=== PATIENT | female | born 1980 ===

== ENCOUNTER → 2018-09-13 22:43 | Outpatient (REF) | payer OTHER, SELFPAY ==
[2018-09-13 23:47] LABS: Add Manual Diff / Slide Review NO; Basophils Percent Auto 0.7 % (0-2); Eosinophils Percent Auto 1.5 % (2-4); Hematocrit 40.2 % (36-46); Hemoglobin 13.6 g/dL (12.0-16.0); Lymphocytes Percent Auto 23.1 % (25-40); Mean Corpuscular HGB Conc 33.8 % (30-36); Mean Corpuscular Hemoglobin 29.6 PG (26-34); Mean Corpuscular Volume 87.8 fL (80-100); Monocytes Percent Auto 8.4 % (3-14); Neutrophils Absolute Auto 5000 /uL (1500-7000); Neutrophils Percent Auto 66.3 % (50-75); Platelet Count 132 X10^3/uL (150-400); Red Blood Cell Count 4.58 X10^6/uL (4.0-5.2); Red Cell Distribution Width 12.3 % (11.6-14.8); White Blood Cell Count 7.5 X10^3/uL (4.5-11.0)
[2018-09-14 00:35] LABS: Alanine Aminotransferase 22 IU/L (9-52); Albumin 4.5 g/dL (3.5-5.0); Albumin Globulin Ratio 1.7 (1.0-2.8); Alkaline Phosphatase 72 U/L (38-126); Aspartate Aminotransferase 23 IU/L (14-36); Bilirubin Total 0.5 mg/dL (0.2-1.3); Blood Urea Nitrogen 15 mg/dL (7-17); Calcium 9.6 mg/dL (8.4-10.2); Carbon Dioxide 23 mmol/L (22-32); Chloride 103 mmol/L (98-107); Estimated Glomerular Filt Rate > 60.0 mL/min (>60); Globulin 2.6 g/dL (1.7-4.1); Glucose 83 mg/dL (70-100); HEMOLYSIS < 15 (0-50); Sodium 141 mmol/L (137-145); Total Protein 7.1 g/dL (6.3-8.2)
[2018-09-14 01:11] LABS: Ferritin 76.4 ng/mL (6.27-137)
[2018-09-14 02:04] LABS: Free T3, Triiodothyronine Free 3.26 pg/mL (2.77-5.27)
[2018-09-14 02:18] LABS: Thyroid Stimulating Hormone 2.24 uIU/mL (0.47-4.68)
[2018-09-17 15:42] LABS: Triiodothyronine T3 Reverse 23 ng/dL (8-25)
== END ==
LOC: LAB 22:43
PROVIDERS: Visit Provider Naturopath
DX: G44.209 Tension-type headache, unspecified, not intractable (principal); S13.4XXA Sprain of ligaments of cervical spine, initial encounter; R53.83 Other fatigue; E03.9 Hypothyroidism, unspecified; J01.80 Other acute sinusitis
CPT/HCPCS: 36415; 80053; 82728; 84439; 84443; 84481; 84482; 85025